=== PATIENT | female | born 2000 | race Caucasian/White ===

== ENCOUNTER 2022-09-07 08:45 | Day surgery (SDC) | payer SELFPAY, OTHER ==
[2022-09-07] VITALS (10 sets, daily range): BP systolic 90–116; BP diastolic 50–80; PULSE 70–118; RESP 16–24; TEMP 36.4–36.7; O2SAT 100; BMI 22.0
[2022-09-07] MEDS: Lactated Ringers 1,000 ML 15 ML IV (09:27)
[2022-09-07 09:42] LABS: Internal QC Validated? YES +Cl - CLEAR BKGD; Pregnancy, Serum, hCG Quali. NEGATIVE Negative
--- NOTE | 2022-09-07 10:56 | HP.PCM_ITS ---
History and Physical Date of Admission: 09/07/22 Date of Service:? 08/26/22 MR#: [id number] Acct: [id number] Name:VELASQUEZ ALVARES Rep #: [id number] : 2000 ? ? Provider: Dr. Porsche Nava MD Age/Sex:? 22/F ? ? Location: [facility] Status: Signed Intake Vital Signs ? 08/26/2312:58 Height 5 ft 6 in BP 119/78 Blood Pressure Location Rt brachial Position Sitting Respiration 16 Intake Visit Reasons:?Rectal Bleeding Chief Complaint: rectal bleeding Configuration Consultant Required: No Is patient in pain?: Yes (rectal) Allergies No Known Allergies Allergy (Unverified 08/26/22 13:58) Medications NK? 08/26/22 [History Confirmed 08/26/22] PFSH Medical History?(Updated 08/26/22 @ 13:59 by Geri Henson) Constipation Rectal bleeding Rectal pain Family History?(Updated 08/26/22 @ 13:57 by Geri Henson) Grandmother CVA (cerebral vascular accident)Mother Thyroid disorder Social History?(Updated 08/26/22 @ 13:57 by Geri Henson) Smoking Status:? Never smoker alcohol intake:? never HPI HPI HPI: 22-year-old female presents with her mom due to constipation and bright red blood per rectum.? Patient states she has bowel movements about every 2 to 3 days and takes a natural laxative in order to go patient does have bright red blood in the toilet and on the toilet paper.? Patient states occasionally she may have some pain with bowel movements but is not all the time.? Patient never had a colonoscopy.? Patient denies any family history of colon cancer.? Patient does take a fiber blend supplement but unsure how much total fiber she gets in her diet.? Patient thinks she drinks at least 3 of the 16 ounce of water daily. ROS General General: Yes fatigue; No weight change, appetite, colon cancer, breast cancer or weakness HEENT HEENT: No difficulty swallowing, eye injury, eye surgery, swollen glands or hoarseness Endo Endocrine: No thyroid disease, diabetes mellitus, thyroid cancer, Hair loss, heat intolerance or cold intolerance Skin Skin: No rash or changing moles Breast Breast: No left breast lump, right breast lump, nipple discharge, breast pain, abnormal mammogram, abnormal US or breast enlargement Musc Musculoskeletal: No back problems, arthritis, rheumatoid arthritis, gout or joint pain Cardio Cardiovascular: No murmur, pacemaker, heart disease, atrial fibrillation, high blood pressure, heart attack, heart stent, palpitations, shortness of breat with exertion or chest pain Psych Psychiatric: No depression, anxiety or hearing voices Resp Respiratory: No shortness of breath, No sleep apnea, No cough, No COPD, No asthma, No emphysema and No wheezing Gastro Gastrointestinal: Yes abdominal pain, Yes nausea or vomiting, No diarrhea, Yes constipation, Yes blood in stool, No acid reflux, No hemorrhoids, No ulcers, No gallbladder problem and No black,tarry stools Bandar Hematologic: No blood thinners, No blood disorders, No bleeding, No anemia and No blood clots Neuro Neurologic: No system reviewed and no additional complaints, except as documented, No as per HPI, No abnormal gait, No abnormal hearing, No abnormal movements, No abnormal speech, No behavioral changes, No burning sensations, No confusion, No convulsions, No disequilibrium, No dizziness, No localized weakness, No frequent falls, No headache(s), No lack of coordination, No loss of vision, No memory loss, No numbness, No other visual disturbances, No radicular pain, No restless legs, No sensory deficit, No syncope, No tingling, No tremor(s), No weakness and No other Exam Const General: cooperative, healthy appearing and no acute distress [facility] Head: normal to inspection Resp Effort & Inspection: normal respiratory effort Cardio Rate: regular rate GI Inspection: non-distended Palpation: soft, no guarding, no hernias and nontender Rectal Exam: normal sphincter tone, No fissure, No tenderness and other (small amount tissue at 6:00 anteriorly-internal,no bld, no ext hemorrhoids,) Skin General: no rashes or lesions noted Neuro General: patient oriented x3 Extrem General: no clubbing, cyanosis or edema Psych Affect: normal affect Assessment and Plan Assessment and Plan (1) Rectal bleeding: ?Status:?Acute (2) Constipation: ?Status:?Acute Plan Discussed with patient importance of high-fiber diet to help with constipation.? Recommend patient to get 25 g of fiber daily.? Also encourage continued increased water intake. I have discussed the above with the patient. I have offered the patient colonoscopy for evaluation. I have explained the risks/benefits of the procedure and described the procedure.? I have discussed the risks with the patient, including but not limited to:? infection, bleeding, perforation of the GI tract requiring emergency surgery, inability to complete the procedure, injury to any internal organs, complications of anesthesia, etc. - the patient understands and agrees to proceed. I have answered all the patient's questions to the patient's satisfaction and the patient has no further questions. The patient has been given instructions for the colon cleansing preparation.? 1 day of clears, MiraLAX Dulcolax split prep.? Discussed with patient if she is having constipation prior to beginning her prep would recommend taking her normal laxative the day prior to prepping. Porsche Nava M.D. Pager: [phone] [facility] [address] [place] [address], [address] [place] [address] Office: [phone] Coding Level of Care Code Off vis,new,level 3 Diagnoses Rectal bleeding? K62.5 Constipation? K59.00 08/28/22 0915 <Electronically signed by Porsche Nava MD> Date Porsche Nava MD
--- NOTE | 2022-09-07 12:17 | OP.CCLET_ITS ---
09/07/2022 Sammi Prasad Re : Colonoscopy procedure for Jaylene Prasad This procedure was performed on Wednesday, September 07, 2022. My impressions and recommendations are as follows: Impressions : - Hemorrhoids found on perianal exam. - Non-bleeding internal hemorrhoids. - The entire examined colon is normal. - The examined portion of the ileum was normal. - No specimens collected. Recommendations : - Discharge patient to home. - Resume previous diet. - Continue present medications. - Repeat colonoscopy at age 47 for screening. My findings are described in the full procedure note, which is enclosed. If I can be of further assistance, please feel free to contact me at Doctor phone number(s): , Work: . Sincerely, MD Porsche Guerra MD 09/07/2022 12:17:14 PM This report has been signed electronically.
--- NOTE | 2022-09-07 12:17 | OP.COLON_ITS ---
Patient Name: Jaylene Smith Procedure Date: 09/07/2022 11:54 AM Date of : 2000 Age: 22 Procedure: Colonoscopy Indications: Rectal bleeding, Constipation Providers: Porsche Nava MD Medicines: Monitored Anesthesia Care Patient Profile: This is a 22 year old female. Last Colonoscopy: none. The patient's first colonoscopy is today. Complications: No immediate complications. Procedure: Pre-Anesthesia Assessment: - Prior to the procedure, a History and Physical was performed, and patient medications and allergies were reviewed. The patient's tolerance of previous anesthesia was also reviewed. The risks and benefits of the procedure and the sedation options and risks were discussed with the patient. All questions were answered, and informed consent was obtained. Prior Anticoagulants: The patient has taken no previous anticoagulant or antiplatelet agents. ASA Grade Assessment: Per anesthesia. After reviewing the risks and benefits, the patient was deemed in satisfactory condition to undergo the procedure. After I obtained informed consent, the scope was passed under direct vision. Throughout the procedure, the patient's blood pressure, pulse, and oxygen saturations were monitored continuously. The pediatric colonoscope was introduced through the anus and advanced to the terminal ileum. The colonoscopy was performed without difficulty. The patient tolerated the procedure well. The quality of the bowel preparation was good. Scope In: 11:54:20 AM Scope Withdrawal Time 0 hours 7 minutes 40 seconds Scope Out: 12:12:32 PM Total Procedure Duration Time 0 hours 18 minutes 12 seconds Findings: Hemorrhoids were found on perianal exam. Non-bleeding internal hemorrhoids were found. The hemorrhoids were Grade I (internal hemorrhoids that do not prolapse). The entire examined colon appeared normal. The terminal ileum appeared normal. Impression: - Hemorrhoids found on perianal exam. - Non-bleeding internal hemorrhoids. - The entire examined colon is normal. - The examined portion of the ileum was normal. - No specimens collected. Recommendation: - Discharge patient to home. - Resume previous diet. - Continue present medications. - Repeat colonoscopy at age 47 for screening. Procedure Code(s): --- Professional --- 02818, Colonoscopy, flexible; diagnostic, including collection of specimen(s) by brushing or washing, when performed (separate procedure) Diagnosis Code(s): --- Professional --- K64.0, First degree hemorrhoids K62.5, Hemorrhage of anus and rectum K59.00, Constipation, unspecified CPT copyright 2017 [employer]. All rights reserved. The codes documented in this report are preliminary and upon nurses director review may be revised to meet current compliance requirements. MD Porsche Guerra MD 09/07/2022 12:17:14 PM This report has been signed electronically. Number of Addenda: 0 Note Initiated On: 09/07/2022 11:54 AM
--- NOTE | 2022-09-07 12:50 | RAD_ITS ---
STUDY: X-RAY - ABDOMEN/PELVIS REASON FOR EXAM: Female, 22 years old. ACUTE ABOMINABLE PAIN POST COLONOSCOPY TECHNIQUE: AP supine and decubitus views of the abdomen and pelvis. COMPARISON: None. FINDINGS: Normal visualized lung bases. Gaseous distention of the entire colon in keeping with a recent colonoscopy. There is no demonstrated free abdominal air. The visualized liver, spleen and kidneys are grossly normal in size and morphology. Normal soft tissue structures. Normal visualized osseous structures. RAD/Abd Inc Decub and/or Erect IMPRESSION: Gaseous distention of the colon in keeping with a recent colonoscopy. Electronically Signed: Pato Guillaume MD at 13:29 EDT ,
[2022-09-07] MEDS: Simethicone 40MG/0.6ML Bottle 80 MG PO (13:19)
== END 2022-09-07 14:47 | disposition home or self-care (01) ==
LOC: EN 08:56 → AC 08:57
PROVIDERS: Anesthesiology; PCP Physician Assistant; Referring Provider Physician Assistant; Visit Provider Surgery
PROC: 0DJD8ZZ Inspection of Lower Intestinal Tract, Via Natural or Artificial Opening Endoscopic (ICD-10-PCS; CPT 45378; principal; 2022-09-07 10:55)
DX: K64.0 First degree hemorrhoids (principal); K62.5 Hemorrhage of anus and rectum
CPT/HCPCS: 45378; 74019; 84703; J7120; J2405

== ENCOUNTER → 2022-10-28 | Outpatient (CLI) | payer OTHER, SELFPAY ==
[2022-10-28 17:07] LABS: Absolute Lymphocyte Count 1.47 X10^3/uL (0.83-4.51); Absolute Neutrophil Count 4.1 X10^3/uL (2.0-7.7); Basophil# 0.01 X10^3/uL; Basophil% 0.2 % (0-1); Eosinophil# 0.01 X10^3/uL; Eosinophils% 0.2 % (0-5); Hematocrit 38.4 % (37-47); Hemoglobin 12.5 g/dL (12.0-15.0); Lymphocyte # 1.47 X10^3/ul (0.83-4.51); Lymphocyte % 24.8 % (19-41); Mean Corp Hgb Conc 32.6 g/dL (32-36); Mean Corpuscular Volume 92.3 fL (81-99); Mean Platelet Vol. 11.8 fl (6.2-12.0); Monocyte# 0.35 X10^3/uL; Monocyte% 5.9 % (0-10); NRBC Flagged by Analyzer 0 % (0-5); Neutrophil # 4.06 X10^3/uL (2.7-7.7); Neutrophil % 68.6 % (47-70); Platelet Count 217 K/mm3 (150-450); RBC Distribution Width CV 12.7 % (11.6-14.6); RBC Distribution Width SD 43.1 fl (35.1-43.9); Red Blood Count 4.16 M/mm3 (4.2-5.4); White Blood Count 5.9 K/mm3 (4.4-11.0)
[2022-10-28 17:25] LABS: hCG Titer Quant., Serum < 1 mIU/mL (1-3)
[2022-10-28 17:39] LABS: Estradiol 22.7 pg/mL; Follicle Stimulating Hormone 3.1 mIU/mL; Luteinizing Hormone 3.1 mIU/mL; Prolactin 12.7 ng/mL; T4 Free Direct 1.04 ng/dL (0.76-1.46); Thyroid Stim Hormone (TSH) 1.28 uIU/mL (0.358-3.74)
[2022-11-05 19:07] LABS: Testosterone Free 1.1 pg/mL (0.0-4.2)
== END | disposition home or self-care (01) ==
LOC: LAB 16:27
PROVIDERS: PCP Physician Assistant; Referring Provider Nurse Practitioner Women's Health; Visit Provider Nurse Practitioner Women's Health
DX: N93.9 Abnormal uterine and vaginal bleeding, unspecified (principal)
CPT/HCPCS: 36415; 82670; 83001; 83002; 84146; 84402; 84439; 84443; 84702; 85025